=== PATIENT | female | born 1980 | race African-American/Black ===

== ENCOUNTER 2018-01-30 11:44 | Emergency (ER) | payer OTHER ==
--- NOTE | 2018-01-30 11:59 | ER Document Report ---
ED Medical Screen (RME) - General Chief Complaint: Abdominal Pain Stated Complaint: ABDOMINAL PAIN Time Seen by Provider: 01/30/18 11:54 Notes: The patient is a 37-year-old female who presents with a day of suprapubic and right lower quadrant abdominal pain. He is also having constipation after taking tramadol and use an enema. Denies dysuria, fevers, nausea or vomiting. PE: Tenderness over suprapubic and RLQ (limited exam in RME chair). I have greeted and performed a rapid initial assessment of this patient. A comprehensive ED assessment and evaluation of the patient, analysis of test results and completion of the medical decision making process will be conducted by additional ED providers. TRAVEL OUTSIDE OF THE [place] IN LAST 30 DAYS: No - Related Data Allergies/Adverse Reactions: No Known Allergies Allergy (Unverified 01/30/18 11:45) Physical Exam - Vital signs Vitals: Temp Pulse Resp BP Pulse Ox 97.9 F 92 16 137/91 H 100 01/30/18 11:49 01/30/18 11:49 01/30/18 11:49 01/30/18 11:49 01/30/18 11:49 Course - Vital Signs Vital signs: Temp Pulse Resp BP Pulse Ox 97.9 F 92 16 137/91 H 100 01/30/18 11:49 01/30/18 11:49 01/30/18 11:49 01/30/18 11:49 01/30/18 11:49 Doctor's Discharge - Discharge Referrals: LOCALMD,NO [Primary Care Provider] - Follow up as needed
--- NOTE | 2018-01-30 12:56 | ER Document Report ---
ED General - General Mode of Arrival: Ambulatory Information source: Patient TRAVEL OUTSIDE OF THE [place] IN LAST 30 DAYS: No - HPI Onset: Last week Onset/Duration: Gradual Quality of pain: Cramping, Sharp, Stabbing, Throbbing Severity: Moderate Associated symptoms: Nausea Exacerbated by: Denies Relieved by: Denies Similar symptoms previously: Yes Recently seen / treated by doctor: No <RONNIE TURNER - Last Filed: 01/30/18 12:51> <SHANDA FLORES - Last Filed: 01/30/18 23:47> - General Chief Complaint: Abdominal Pain Stated Complaint: ABDOMINAL PAIN Time Seen by Provider: 01/30/18 11:54 Notes: 37-year-old female presents emergency department with a week and a half history of right lower quadrant pain. Patient has a history of uterine fibroids. She states that initially thought her fibroids were causing her pain. She describes the pain as a sharp and stabbing sensation located in the right lower quadrant without any radiation. She states that she has been having some increased urinary frequency. Patient states that her [employer] REPAIRER told her the fibroid was onto of her bladder. Patient thought this was what was causing her to urinate more. Denies fever, chills, dysuria, vaginal bleeding, vaginal discharge, vomiting, diarrhea. Has been having intermittent nausea and constipation. Using over the counter enemas with minimal relief. (RONNIE TURNER) - Related Data Allergies/Adverse Reactions: No Known Allergies Allergy (Unverified 01/30/18 11:45) Past Medical History - General Information source: Patient - Social History Smoking Status: Never Smoker Chew tobacco use (# tins/day): No Frequency of alcohol use: None Drug Abuse: None Family History: Reviewed & Not Pertinent Patient has suicidal ideation: No Patient has homicidal ideation: No Pulmonary Medical History: Reports: Hx Asthma Renal/ Medical History: Denies: Hx Peritoneal Dialysis <RONNIE UTRNER - Last Filed: 01/30/18 12:51> Review of Systems - Review of Systems Constitutional: No symptoms reported EENT: No symptoms reported Cardiovascular: No symptoms reported Respiratory: No symptoms reported Gastrointestinal: Abdominal pain, Nausea, Constipation Genitourinary: Frequency Female Genitourinary: No symptoms reported Musculoskeletal: No symptoms reported Skin: No symptoms reported Hematologic/Lymphatic: No symptoms reported Neurological/Psychological: No symptoms reported -: Yes All other systems reviewed and negative <RONNIE TURNER - Last Filed: 01/30/18 12:51> Physical Exam - Vital signs Interpretation: Normal <RONNIE TURNER - Last Filed: 01/30/18 12:51> <SHANDA FLORES - Last Filed: 01/30/18 23:47> - Vital signs Vitals: Temp Pulse Resp BP Pulse Ox 97.9 F 92 16 137/91 H 100 01/30/18 11:49 01/30/18 11:49 01/30/18 11:49 01/30/18 11:49 01/30/18 11:49 - Notes Notes: PHYSICAL EXAMINATION: GENERAL: Well-appearing, well-nourished and in no acute distress. HEAD: Atraumatic, normocephalic. EYES: Pupils equal round and reactive to light, extraocular movements intact, conjunctiva are normal. ENT: Nares patent, oropharynx clear without exudates. Moist mucous membranes. NECK: Normal range of motion, supple without lymphadenopathy LUNGS: Breath sounds clear to auscultation bilaterally and equal. No wheezes rales or rhonchi. HEART: Regular rate and rhythm without murmurs ABDOMEN: Soft, tenderness to palpation in the lower R pelvis. Hard mass appreciated in the suprapubic region. Female : deferred Musculoskeletal: Normal range of motion, no pitting or edema. No cyanosis. NEUROLOGICAL: Cranial nerves grossly intact. Normal speech, normal gait. Normal sensory, motor exams PSYCH: Normal mood, normal affect. SKIN: Warm, Dry, normal turgor, no rashes or lesions noted. (RONNIE TURNER ) Course - Laboratory Result Diagrams: 01/30/18 12:32 01/30/18 12:32 <RONNIE TURNER - Last Filed: 01/30/18 12:51> - Laboratory Result Diagrams: 01/30/18 13:12 01/30/18 12:32 <SHANDA FLORES - Last Filed: 01/30/18 23:47> - Re-evaluation Re-evalutation: Abdomen/Pelvis CT 01/30/18 12:49 IMPRESSION: 1. 14.2 x 13.2 x 11.6 cm multi cystic mass within the pelvis. Favor right ovarian origin, although this is difficult to discern on CT imaging. Differential considerations include ovarian torsion, mature teratoma, or tumor (benign versus malignant). If low clinical suspicion for ovarian torsion, consider pelvic ultrasound for further characterization. 2. Apparent left adnexal dermoid cyst. Pelvis Ultrasound 01/30/18 15:45 IMPRESSION: The size of the midline pelvic mass limits this examination. Ultrasound confirms complexity within the multi cystic mass, excluding purely cystic considerations from the differential. No central blood flow is demonstrated. Complex cystic mass considerations include endometrioma ( although typically more homogeneous echogenicity), mucinous cystadenoma, cystadenocarcinoma (serous versus mucinous), etc. Given the inability to discern the uterus from the mass, cannot exclude endometrioid carcinoma or other uterine mass. 01/30/18 17:56 Patient received in signout with ultrasound pending. On reevaluation patient is resting comfortably. She reports an improvement of her pain and nausea. I did speak to Dr. Potter [employer] environmental educator who recommends evaluation in the office in the next 2-3 days. I spoke to patient regarding the findings of the mass which she is already aware of. She states that she has [facility] which showed the mass to be noncancerous. Patient agreeable with discharge home. Patient provided the opportunity to ask questions, and express concerns. Discharge instructions discussed. Patient is agreeable with discharge home. Return indications explained and discussed with the patient who displays understanding. Patient encouraged to return to the emergency department immediately with any concerns. (SHANDA FLORES) - Vital Signs Vital signs: Temp Pulse Resp BP Pulse Ox 98.2 F 45 L 18 140/76 H 100 01/30/18 18:06 01/30/18 18:06 01/30/18 18:06 01/30/18 18:06 01/30/18 18:06 - Laboratory Laboratory results interpreted by oh: 01/30/18 01/30/18 01/30/18 12:20 12:32 13:12 Hgb 11.4 L Hct 33.5 L RDW 18.0 H AST 86 H ALT 106 H Alkaline Phosphatase 35 L Urine Ketones TRACE H Urine Blood MODERATE H Urine Urobilinogen 2.0 H Urine Ascorbic Acid 40 H Discharge <RONNIE TURNER - Last Filed: 01/30/18 12:51> <SHANDA FLORES E - Last Filed: 01/30/18 23:47> - Discharge Clinical Impression: Pelvic mass in female Condition: Good Disposition: HOME, SELF-CARE Instructions: Growth or Mass, Pending Workup ([facility]) Additional Instructions: Your imaging today showed a pelvic mass. [facility] or follow-up locally with women's health. Follow up with your physician tomorrow for further care or return to the ED IMMEDIATELY if symptoms worsen or new concerns occur. If you cannot afford to follow up with your primary care physician a list of low cost clinics have been provided at the end of your discharge papers as well. Prescriptions: Hydrocodone/Acetaminophen [[place] 5-325 mg Tablet] 1 tab PO Q6H #15 tablet Ondansetron [Zofran Odt 4 mg Tablet] 1 - 2 tab PO Q4H PRN #15 tab.rapdis PRN Reason: For Nausea/Vomiting Referrals: LOCAL,NO [NO LOCAL MD] - Follow up as needed MANOJ KAUR MD [ACTIVE STAFF] - Follow up in 3-5 days
[2018-01-30 13:23] LABS: APPEARANCE,URINE SLIGHTLY-CLOUDY; BILIRUBIN,URINE NEGATIVE (NEGATIVE); GLUCOSE, URINE NEGATIVE (NEGATIVE); KETONES,URINE TRACE mg/dL (NEGATIVE); LEUKOCYTE ESTERASE,URINE NEGATIVE (NEGATIVE); NITRITE,URINE NEGATIVE (NEGATIVE); PROTEIN,URINE NEGATIVE (NEGATIVE); URINE SPECIFIC GRAVITY 1.023
[2018-01-30 13:24] LABS: COLOR,URINE DARK YELLOW
[2018-01-30 13:24] LABS: ALANINE AMINOTRANSFERASE 106 U/L (9-52); ALBUMIN 4.6 g/dL (3.5-5.0); ALKALINE PHOSPHATASE 35 U/L (38-126); ANION GAP 16 (5-19); ASPARTATE AMINO TRANSFERASE 86 U/L (14-36); BILIRUBIN,DIRECT 0.4 mg/dL (0.0-0.4); BILIRUBIN,TOTAL 0.6 mg/dL (0.2-1.3); BLOOD UREA NITROGEN 7 mg/dL (7-20); CALCIUM 9.4 mg/dL (8.4-10.2); CARBON DIOXIDE 23 mmol/L (22-30); CHLORIDE 105 mmol/L (98-107); GLUCOSE 75 mg/dL (75-110); POTASSIUM 4.3 mmol/L (3.6-5.0); SODIUM 143.8 mmol/L (137-145); TOTAL PROTEIN 8.1 g/dL (6.3-8.2)
[2018-01-30 13:29] LABS: ABSOLUTE MONOCYTES (AUTO) 0.7 10^3/uL (0.1-1.4); ABSOLUTE NEUT (AUTO) 6.5 10^3/uL (1.7-8.2); BASOPHILS % (AUTO) 0.5 % (0-2); EOSINOPHILS % (AUTO) 0.5 % (0-6); HEMATOCRIT 33.5 % (36.0-47.0); HEMOGLOBIN 11.4 g/dL (12.0-15.5); LYMPHOCYTES % (AUTO) 21.4 % (13-45); MEAN CORPUSCULAR HEMOGLOBIN 29.1 pg (27.0-33.4); MEAN CORPUSCULAR VOLUME 86 fl (80-97); MONOCYTES % (AUTO) 7.7 % (3-13); PLATELET COUNT 376 10^3/uL (150-450); RED BLOOD COUNT 3.92 10^6/uL (3.72-5.28); SEGMENTED NEUTROPHILS % (AUTO) 69.9 % (42-78); TOTAL CELLS COUNTED % (AUTO) 100 %; WHITE BLOOD COUNT 9.3 10^3/uL (4.0-10.5)
--- NOTE | 2018-01-30 15:36 | RADIOLOGY REPORT (SQ) ---
EXAM DESCRIPTION: CT ABD/PELVIS WITH IV ONLY COMPLETED DATE/TIME: 01/30/2018 3:03 pm REASON FOR STUDY: RLQ pain. COMPARISON: None. TECHNIQUE: CT scan of the abdomen and pelvis performed using helical scanning technique with dynamic intravenous contrast injection. No oral contrast. Images reviewed with lung, soft tissue, and bone windows. Reconstructed coronal and sagittal MPR images reviewed. Delayed images for evaluation of the urinary system also acquired. All images stored on PACS. All CT scanners at this facility use dose modulation, iterative reconstruction, and/or weight based d osing when appropriate to reduce radiation dose to as low as reasonably achievable (ALARA). [facility]: Dose Right [facility]: CareDose [facility]: Dose Right [facility]: Teradose 4D [facility]: [employer] CONTRAST TYPE AND DOSE: contrast/concentration: Isovue 370.00 mg/ml; Total Contrast Delivered: 94.0 ml; Total Saline Delivered: 71.0 ml RENAL FUNCTION: BUN 7; creatinine 0.74 RADIATION DOSE: CT Rad equipment meets quality standard of care and radiation dose reduction techniq ues were employed. CTDIvol: 12.8 - 17.0 mGy. DLP: 2658 mGy-cm.. LIMITATIONS: None. FINDINGS: LOWER CHEST: No significant findings. No nodules or infiltrates. LIVER: Normal size. No masses. No dilated ducts. SPLEEN: Normal size. No focal lesions. PANCREAS: No masses. No significant calcifications. No adjacent inflammation or peripancreatic fluid collections. Pancreatic duct not dilated. GALLBLADDER: No identified stones by CT criteria. No inflammatory changes to suggest cholecystitis. ADRENAL GLANDS: No significant masses or asymmetry. RIGHT KIDNEY AND URETER: No solid masses. No significant calcifications. Mild hydronephrosis and ureterectasis, likely on the basis of compression of the distal ureter on the basis of a pelvic mass described below. LEFT KIDNEY AND URETER: No solid masses. No significant calcifications. No hydronephrosis or hydr oureter. AORTA AND VESSELS: No aneurysm. No dissection. Renal arteries, SMA, celiac without stenosis. RETROPERITONEUM: No retroperitoneal adenopathy, hemorrhage or masses. BOWEL AND PERITONEAL CAVITY: Grossly normal appearance of the bowel. No free peritoneal fluid. APPENDIX: Normal. PELVIS: There is a 3.9 x 4.6 x 3.7 cm well-circumscribed left adnexal mass demonstrating heterogeneou s attenuation to include focal calcium and fat. This is favored to represent a dermoid cyst. Additi onally, there is a 14.2 x 13.2 x 11.6 cm multi cystic mass within the pelvis. It remains unclear whe ther this represents right ovarian versus uterine mass. This mass is comprised of 2 prominent cystic structures demonstrating intermediate central attenuation as well as a less well-defined heterogeneo us attenuation component at the cranial most aspect. ABDOMINAL WALL: No masses. No hernias. BONES: No significant or acute findings. OTHER: No other significant finding. IMPRESSION: 1. 14.2 x 13.2 x 11.6 cm multi cystic mass within the pelvis. Favor right ovarian orig in, although this is difficult to discern on CT imaging. Differential considerations include ovarian torsion, mature teratoma, or tumor (benign versus malignant). If low clinical suspicion for ovarian torsion, consider pelvic ultrasound for further characterization. 2. Apparent left adnexal dermoid cyst. TECHNICAL DOCUMENTATION: JOB ID: [id number] Quality ID # [id number]: Final reports with documentation of one or more dose reduction techniques (e.g., Au tomated exposure control, adjustment of the mA and/or kV according to patient size, use of iterative reconstruction technique) 2010 [employer]- All Rights Reserved Reading location - IP/workstation name: [email or web address]
[2018-01-30] MEDS ORDERED: FENTANYL CITRATE INJ/PF 100 MCG/2 ML AMPUL IV ONE (15:47)
--- NOTE | 2018-01-30 16:57 | RADIOLOGY REPORT (SQ) ---
EXAM DESCRIPTION: U/S NON OB PEL W/DOPPLER COMPLETED DATE/TIME: 01/30/2018 4:33 pm REASON FOR STUDY: R ovarian mass COMPARISON: CT abdomen and pelvis 01/30/2018 TECHNIQUE: Dynamic and static grayscale images acquired of the pelvis via transabdominal approach an d recorded on PACS. Additional selected color Doppler and spectral images recorded. LIMITATIONS: The size of the pelvic mass limits examination. FINDINGS: UTERUS: Unable to discern on the images provided ENDOMETRIAL STRIPE: Not evaluated. CERVIX: Not evaluated peer RIGHT OVARY AND DOPPLER: In the expected location of the right ovary, there is a 14.5 x 12.9 x 12.4 c m mass demonstrating heterogeneous internal echogenicity. No central blood flow is seen on Doppler i nterrogation. LEFT OVARY AND DOPPLER: Normal size and blood flow. Note is made of a 4.9 x 3.8 x 4.3 cm mildly comp bette mass consistent dermoid identified on CT imaging. FREE FLUID: None noted. OTHER: No other significant finding. MEASUREMENTS: UTERUS: Not visualized. ENDOMETRIAL STRIPE: Not visualized. RIGHT OVARY: Not visualized. LEFT OVARY: 5.6 x 4.3 x 3.4 cm IMPRESSION: The size of the midline pelvic mass limits this examination. Ultrasound confirms comple xity within the multi cystic mass, excluding purely cystic considerations from the differential. No central blood flow is demonstrated. Complex cystic mass considerations include endometrioma (althoug h typically more homogeneous echogenicity), mucinous cystadenoma, cystadenocarcinoma (serous versus m ucinous), etc. Given the inability to discern the uterus from the mass, cannot exclude endometrioid carcinoma or other uterine mass. TECHNICAL DOCUMENTATION: JOB ID: [id number] [employer]- All Rights Reserved Rev-12/11 Reading location - IP/workstation name: [email or web address]
[2018-01-30 18:07] VITALS: BP 140/76
== END 2018-01-30 18:07 | disposition home or self-care (01) ==
LOC: ER 11:44
DX: R19.00 Intra-abdominal and pelvic swelling, mass and lump, unspecified site (principal)
CPT/HCPCS: 36415; 74177; 76856; 80053; 81001; 81025; 85025; 93976; 99284